=== PATIENT | female | born 1975 | race Caucasian/White ===

== ENCOUNTER → 2017-03-13 | Outpatient (CLI) | payer BC ==
--- NOTE | 2017-03-13 14:28 | MM ---
Reason for exam: screening (asymptomatic). Baseline mammogram. History: Family history of breast cancer in 2 grandmothers. Physical Findings: Dr. Hargrove did not find any significant physical abnormalities on exam. MG 3D Screening Mammo W/Cad Bilateral CC and MLO view(s) were taken. There are scattered fibroglandular densities. There is no discrete abnormality. These results were verbally communicated with the patient and result sheet given to the patient on 03/13/17. ASSESSMENT: Negative, BI-RAD 1 RECOMMENDATION: Routine screening mammogram of both breasts in 1 year.
--- NOTE | 2017-03-14 06:18 | WWHP ---
[facility] - HISTORY AND PHYSICAL DATE OF SERVICE: 03/13/2017 CHIEF COMPLAINT: The patient is here for her routine gynecologic exam and mammogram. HPI: This is a 41-year-old, G2, P2 with an LMP of 02/27/2017. Her is status post vasectomy. The patient is without gynecologic complaints and states her menstrual periods are regular every month. PAST MEDICAL HISTORY: Anxiety. MEDICATIONS: Effexor 150 mg daily. ALLERGIES: No known drug allergies. 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 SOCIAL HISTORY: She denies tobacco and drug use and has 1 to 2 alcohol containing drinks per month. 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 REVIEW OF SYSTEMS: She has lost about 15 pounds over the last year and she states she has been working out. She denies respiratory, cardiac or GI problems. PHYSICAL EXAM: Blood pressure 131/74, height 5 feet 6 inches, weight 135 pounds, BMI 22, temperature 98.3, pulse 82. This is a well-developed, well-nourished, white female, who is alert and oriented x3, in no acute distress. HEENT is within normal limits. NECK: Supple without mass or thyromegaly. CHEST AND LUNGS: Clear to auscultation. HEART: Regular rate and rhythm. Breasts are without mass or discharge. Axillary exam is negative for adenopathy. BACK: Negative for CVA tenderness. ABDOMEN: Soft, nontender, and the lap band port is palpable in the left epigastric region. This is nontender and measures approximately 3 cm. The rest of the abdomen is soft and nontender without palpable masses. PELVIC EXAM: Normal external genitalia. Cervix and vagina appear normal. There is no evidence of prolapse. There is no unusual discharge. The uterus is mid position, nongravid size and nontender. There are no palpable adnexal masses or tenderness. Rectal exam is negative for mass or tenderness and is negative for occult blood. EXTREMITIES: Nontender. IMPRESSION: A 41-year-old gynecologically healthy female whose is status post vasectomy. PLAN: 1. Pap smear was deferred since she had a normal one last year. 2. Self breast examination was discussed. 3. Baseline screening mammogram will be done today. 4. She will return in one year. MMODL / IJN: [id number] /
== END | disposition home or self-care (01) ==
LOC: WWCWWP 13:20
PROVIDERS: ATTEND Obstetrics & Gynecology
DX: Z12.31 Encounter for screening mammogram for malignant neoplasm of breast (principal)
CPT/HCPCS: 77063; G0202

== ENCOUNTER → 2017-11-06 | Outpatient (CLI) | payer BC ==
[2017-11-06 11:36] VITALS: BP 121/64; PULSE 61; TEMP 96.9; BMI 21.7
--- NOTE | 2017-11-06 12:06 | P.PN ---
Progress Note - Text Progress Note Date: 11/06/17 CC: right breast lump felt since one month ago. HPI: this is a 49 year old who has menses regular every month. Her 's status post vasectomy. Patient has noticed the right breast lumps since one month ago. She says it feels about grape or marble size. She states there are occasional pains from this area but is generally not very painful. She denies any nipple leakage or blood. She had an annual exam and baseline mammogram on 03/13/2017 which was benign. Review of systems: weight has been stable. She denies respiratory, cardiac, or G.I. problems. PE: blood pressure 121/64, height 5'6", weight 135 pounds, temperature 96.9, pulse 61. This is a well-developed well-nourished white female who was alert and oriented times 3 in no acute distress. Breast exam: breasts are normal to inspection. There is a palpable mass in the right breast at the 1 o'clock position measuring approximately 3 x 2.5 cm. This is somewhat firm and slightly irregular in texture. This is nontender. Mass is more noticeable in the upright position and less noticeable when supine. There is no nipple discharge. There are no other palpable masses in either breast. Axillary exams are negative for adenopathy. Additional studies: baseline mammogram was negative on 03/13/2017. Impression: 1. Right breast mass which has been noticed by the patient for one month. Differential diagnosis will include breast cysts, other neoplasm, or more prominent suspensory type breast tissue in the upper breast. 2. Family history of breast cancer in her 2 grandmothers. Plan: 1. The area of concern was marked with a bead sticker. Right breast ultrasound will be done today. If suspicious, the patient will be referred to a breast surgeon. If benign appearing and not suspicious, reevaluation at her annual exam in 4 months.
--- NOTE | 2017-11-06 13:06 | USB ---
Reason for exam: clinical finding. History: Family history of breast cancer in 2 grandmothers. Physical Findings: Palpable per Dr. Hargrove. US Breast RT Right complete breast ultrasound includes all four quadrants, the retroareolar region and axilla. Finding demonstrates duct ectasia at the posterior nipple. No suspicious finding. Dense breast tissue at site of palpable. These results were verbally communicated with the patient and result sheet given to the patient on 11/06/17. ASSESSMENT: Negative, BI-RAD 1 RECOMMENDATION: Return to routine screening mammogram schedule for both breasts.
--- NOTE | 2017-11-07 13:15 | P.PN ---
Progress Note - Text Progress Note Date: 11/07/17 OUTPATIENT FOLLOW-UP NOTE TEST(S)/RESULTS: right breast ultrasound done on 11/06/2017 was negative. METHOD OF NOTIFICATION: the patient was notified by phone. PATIENT COMMENTS: the patient understands the results. DIAGNOSIS: breast ultrasound DISCUSSION: we have discussed how the normal breast tissue in the upper breast probably becomes more prominent when she is upright. The fact that the mass seems to disappear when she is supine goes along with this. PLAN: she will return in the fall for her annual exam and we can do a breast exam again at that time. The patient was reassured about these benign findings.
== END | disposition home or self-care (01) ==
LOC: WWCWWP 11:07
PROVIDERS: ATTEND Obstetrics & Gynecology
DX: N63.10 Unspecified lump in the right breast, unspecified quadrant (principal)

== ENCOUNTER → 2018-03-27 | Outpatient (CLI) | payer BC ==
[2018-03-27 11:39] VITALS: BP 111/73; PULSE 70; TEMP 97.7; BMI 20.6
--- NOTE | 2018-03-27 12:29 | P.HPOB ---
History of Present Illness H&P Date: 03/27/18 Chief Complaint: The patient is here for her routine gynecologic exam and mammogram. This is a 42-year-old G2 PII with an LMP of 02/28/2018. The patient's ' s status post vasectomy. Menses are regular every month and she is without gynecologic complaints. She was seen about 5 months ago for a right breast lump. The ultrasound on the right breast was negative at that time. She still notices the lump and it is most notable when she is upright. Review of Systems The patient has lost 7 pounds over the last year. She is status post lap band surgery in 2002. She denies respiratory, cardiac, or G.I. problems. 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 History of Any Multi-Drug Resistant Organisms: MRSA (2011) Past Surgical History: Bariatric Surgery (LapBand surgery 2002), Cholecystectomy , Hernia Repair (Hiatal hernia) Additional Past Surgical History / Comment(s): Surgery for impacted sinus both nostrils. Debridement of MRSA skin lesion 2011. Past Psychological History: No Psychological Hx Reported Smoking Status: Never smoker Past Alcohol Use History: Occasional (One or 2 per month.) Past Drug Use History: None Reported Additional History: She is . 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 - Past Family History Father Family Medical History: No Reported History Additional Family Medical History / Comment(s): Paternal grandmother had breast cancer and diabetes. Grandfather had lung cancer. Mother Additional Family Medical History / Comment(s): Maternal grandmother had breast cancer and diabetes. Medications and Allergies Home Medications Medication Instructions Recorded Confirmed Type Venlafaxine HCl [Effexor XR] mg PO HS 11/06/17 History Venlafaxine HCl [Effexor] tab PO DAILY 11/06/17 History Allergies Allergy/AdvReac Type Severity Reaction Status Date / Time No Known Allergies Allergy Unverified 11/06/17 11:30 Exam Vital Signs Temp Pulse BP 03/27/18 11:20 97.7 F 70 111/73 Intake and Output 03/26/18 03/27/18 03/27/18 22:59 06:59 14:59 Other: Weight 58.06 kg Height 5'6", weight 128 pounds, BMI 20.7. This is a well-developed well-nourished white female who is alert and oriented times 3 in no acute distress. HEENT: Within normal limits. NECK: Supple without mass or thyromegaly. CHEST AND LUNGS: Clear to auscultation. HEART: Regular rate and rhythm. BREASTS: when upright, there is a palpable right breast mass at the 12 o'clock position measuring 2 x 3 cm and a slightly dimpled area inferior to the mass. In the supine position and with the breast tissue elevated in the upright position, the breast mass seems to become less prominent. This is similar to the findings 5 months ago when she presented for the breast mass. There are no other palpable breast masses. The nipples appear normal and there is no nipple discharge or breast tenderness. AXILLARY EXAM: Negative for adenopathy. BACK: Negative for CVA tenderness. ABDOMEN: Soft, nontender, without palpable masses. PELVIC EXAM: Normal external genitalia. Cervix and vagina appear normal. The cervix is slightly friable upon doing the Pap smear. The cervix appears multiparous. There is no cervical motion tenderness. There is no unusual discharge. There is no evidence of prolapse. The uterus is midposition, nongravid size and nontender. There are no palpable adnexal masses or tenderness. RECTAL EXAM: negative for mass or tenderness and is negative for occult blood. EXTREMITIES: Nontender. IMPRESSION: 1. 42-year-old female with right breast mass most noticeable in the upright position. Being that the mass seems to disappear when the breast tissue is elevated or when the patient is in the supine position, it seems to indicate that this possibly may be a summation density of the suspensory tissue which has become more prominent after weight loss. She had a previous right breast ultrasound approximately 5 months ago. 2. Otherwise unremarkable gynecologic exam. PLAN: 1. Pap smear was performed. 2. Self breast awareness was discussed with the patient. 3. Diagnostic bilateral mammograms will be done today. A marker was placed over the area of concern at the 12 o'clock position of the right breast. 4. Osteoporosis prevention was discussed. I have stressed the importance of adequate calcium, vitamin D and regular exercise. Recommended amounts of calcium and vitamin D were also discussed. 5. She will return in one year and PRN.
--- NOTE | 2018-03-27 14:39 | MM ---
Reason for exam: additional evaluation requested from prior study. Last mammogram was performed 1 year ago. History: Family history of breast cancer in 2 grandmothers. Physical Findings: Nurse Summary: 2 x 3cm nodule in the right breast. Dr. Hargrove did breast exam. MG 3D Diag Mammo W/Cad SUGAR Bilateral CC and MLO view(s) were taken. Prior study comparison: March 13, 2017, bilateral MG 3d screening mammo w/cad. BB upper outer quadrant. No mammographic abnormality. No significant new findings when compared with previous films. These results were verbally communicated with the patient and result sheet given to the patient on 03/27/18. ASSESSMENT: Incomplete: need additional imaging evaluation, BI-RAD 0 RECOMMENDATION: Ultrasound of the right breast. (palpable)
--- NOTE | 2018-03-27 14:41 | USB ---
Reason for exam: additional evaluation requested from abnormal screening. History: Family history of breast cancer in 2 grandmothers. US Breast Workup Limited RT Right limited breast ultrasound including focal area of concern, retroareolar and axilla demonstrates no cystic or solid lesion seen. Normal tissue at 1 o'clock palpable. These results were verbally communicated with the patient and result sheet given to the patient on 03/27/18. ASSESSMENT: Negative, BI-RAD 1 RECOMMENDATION: Routine screening mammogram of both breasts in 1 year.
== END ==
LOC: WWCWWP 11:14
PROVIDERS: ATTEND Obstetrics & Gynecology
DX: Z12.31 Encounter for screening mammogram for malignant neoplasm of breast (principal); N63.10 Unspecified lump in the right breast, unspecified quadrant; N63.20 Unspecified lump in the left breast, unspecified quadrant
CPT/HCPCS: 77062; 77066

== ENCOUNTER → 2019-01-06 | Outpatient (CLI) | payer BC ==
--- NOTE | 2019-01-06 13:49 | FL ---
EXAMINATION TYPE: FL barium swallow DATE OF EXAM: 01/06/2019 CLINICAL INDICATION: 43-year-old female with GERD and dysphasia, nausea and vomiting. Patient with hi story of hiatal hernia repair in 2010 and lap band surgery in 2002. COMPARISON: None Total Fluoroscopy Time: 2 minutes 21 seconds. Total images: 35 FINDINGS: Only a total of 2 ounces of thin barium was ingested. The lap band device appears appropriately posit ioned. However, the lap band is very tight with only intermittent trace flow across the lap band. The thoracic esophagus is dilated with fluid and debris and only a portion of the esophageal wall become s coated. Air-fluid level is noted at the midthoracic level. Mild disordered contractions are demonst rated with some intermittent intraesophageal reflux. No hiatal hernia is present. Additional scanning was performed 10 minutes later and shows approximately 1-1.5 ounces making its wa y into the stomach but persistent layering fluid at the midthoracic level. IMPRESSION: 1. Appropriate positioning of the lap band. No evidence for lap band prolapse. 2. Patient ingested only 2 ounces of thin barium. After 10 minutes, only approximately 1-1.5 ounces h as made its way into the stomach. 3. The thoracic esophagus is dilated and filled with fluid and debris with an air-fluid level seen at the midthoracic level. 4. The LAP-BAND is very tight with intermittent trace passage of contrast across the lap band.
== END | disposition home or self-care (01) ==
LOC: RADUSWWP 10:03
PROVIDERS: ATTEND Surgery
DX: K22.8 Other specified diseases of esophagus (principal); Z98.84 Bariatric surgery status
CPT/HCPCS: 74220

== ENCOUNTER → 2019-04-01 | Outpatient (CLI) | payer BC ==
[2019-04-01 15:36] VITALS: BP 118/73; PULSE 60; RESP 18; TEMP 98.6
--- NOTE | 2019-04-01 17:23 | P.HPOB ---
History of Present Illness H&P Date: 04/01/19 Chief Complaint: The patient is here for her routine gynecologic exam and ma mmogram. This is a 43-year-old with an LMP of 03/04/2019.The patient is without gynecologic complaints and states her menses are regular every month. Her is status post vasectomy. The patient has had some problems with prolapse through her lap band and the saline had to be removed. She is now seeing specialists about possibly removing the lap band. She is interested in having a different bariatric surgery to replace the lap band. Review of Systems The patient has gained 31 pounds over the last year. This was after having the saline removed from her lap band as in the HPI. She denies respiratory, cardiac, or G.I. problems. 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 History of Any Multi-Drug Resistant Organisms: MRSA Date of last positivie culture/infection: 2011 MDRO Source:: GROIN Past Surgical History: Bariatric Surgery, Cholecystectomy, Hernia Repair Additional Past Surgical History / Comment(s): lap band surgery 2002. Hiatal hernia repair. Surgery for impacted sinus both nostrils. Debridement of MRSA skin lesion 2011. 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 - Past Family History Father Family Medical History: No Reported History Additional Family Medical History / Comment(s): Paternal grandmother had breast cancer and diabetes. Grandfather had lung cancer. Mother Additional Family Medical History / Comment(s): Maternal grandmother had breast cancer and diabetes. Medications and Allergies Home Medications Medication Instructions Recorded Confirmed Type Venlafaxine HCl [Effexor] 37.5 tab PO HS 11/06/17 04/01/19 History Levocetirizine Dihydrochloride 10 mg PO HS 04/01/19 04/01/19 History [Xyzal] Montelukast [Singulair] 10 mg PO HS 04/01/19 04/01/19 History Allergies Allergy/AdvReac Type Severity Reaction Status Date / Time No Known Allergies Allergy Unverified 04/01/19 15:37 Exam Vital Signs Temp Pulse Resp BP Pulse Ox 04/01/19 15:30 98.6 F 60 18 118/73 98 Intake and Output 04/01/19 04/01/19 04/01/19 06:59 14:59 22:59 Other: Weight 72.121 kg height 5 feet 6 inches, weight 159 pounds, BMI 25.7. This is a well-developed well-nourished White female who is alert and oriented times 3 in no acute distress. HEENT: Within normal limits. NECK: Supple without mass or thyromegaly. CHEST AND LUNGS: Clear to auscultation. HEART: Regular rate and rhythm. BREASTS: Are without mass or discharge. There is mild firmness in the upper right breast with no discrete massand is only noted when she is upright.by elevating the right breast from the bottom, the firmness disappears, thus,this probably represents structural overlap within the breast and not a breast mass. AXILLARY EXAM: Negative for adenopathy. BACK: Negative for CVA tenderness. ABDOMEN: Soft, nontender, without palpable masses. PELVIC EXAM: Normal external genitalia. Cervix is consistent with previous cryo- therapy of the cervix and there are no lesions. Vagina appears normal with no abnormal discharge. There is no evidence of prolapse. The uterus is midposition, nongravid size and nontender. There are no palpable adnexal masses or tenderness. RECTAL EXAM: negative for mass or tenderness and is negative for occult blood. EXTREMITIES: Nontender. IMPRESSION: 1.43-year-old female with normal gynecologic exam whose is status post vasectomy. 2. Issues with her lap band. PLAN: 1. Pap smear was deferred since she had a normal one on 03/27/2018. 2. Self breast awareness was discussed with the patient. 3. screening mammogram will be done today. Her previous mammogram was done last year and was a diagnostic mammogram with a right breast ultrasound which was benign. 4.she will be seeing a specialist for a third opinion regarding the lap band. 5. She was advised to return in one year for her annual well woman exam.
--- NOTE | 2019-04-03 13:53 | MM ---
Reason for exam: screening (asymptomatic). Last mammogram was performed 1 year ago. History: Patient had first child at age 34. Family history of breast cancer in 2 grandmothers. Took hormonal contraceptives for 23 years beginning at age 17. Physical Findings: A clinical breast exam by your physician is recommended on an annual basis and results should be correlated with mammographic findings. MG 3D Screening Mammo W/Cad Bilateral CC and MLO view(s) were taken. Prior study comparison: March 27, 2018, bilateral MG 3d diag mammo w/cad SUGAR. March 13, 2017, bilateral MG 3d screening mammo w/cad. The breast tissue is heterogeneously dense. This may lower the sensitivity of mammography. No significant changes when compared with prior studies. ASSESSMENT: Benign, BI-RAD 2 RECOMMENDATION: Routine screening mammogram of both breasts in 1 year.
== END | disposition home or self-care (01) ==
LOC: WWCWWP 15:22
PROVIDERS: ATTEND Obstetrics & Gynecology
DX: Z12.31 Encounter for screening mammogram for malignant neoplasm of breast (principal)
CPT/HCPCS: 77063; 77067

== ENCOUNTER → 2020-08-17 | Outpatient (CLI) | payer BC ==
[2020-08-17 09:41] VITALS: BP 107/62; PULSE 60; RESP 16; TEMP 98
--- NOTE | 2020-08-17 10:22 | P.HPOB ---
History of Present Illness H&P Date: 08/17/20 Chief Complaint: The patient is here for her routine gynecologic exam and ma mmogram. This is a 44-year-old with an LMP of 08/02/2020. The patient has been experiencing some urinary leakage with coughing, sneezing or running. She is otherwise without complaints. Menstrual periods are regular every month. Her is status post vasectomy. Review of Systems The patient has lost 3 pounds over the last year. She would like to still lose 10-15 pounds more. She denies respiratory, cardiac, or G.I. problems. 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 History of Any Multi-Drug Resistant Organisms: MRSA Date of last positivie culture/infection: 2011 MDRO Source:: GROIN Past Surgical History: Bariatric Surgery, Cholecystectomy, Hernia Repair Additional Past Surgical History / Comment(s): lap band surgery 2002. Gastric bypass surgery with repeat removal of the lap band in 2019. Hiatal hernia repair. Surgery for impacted sinus both nostrils. Debridement of MRSA skin lesion 2011. 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 - Past Family History Father Family Medical History: No Reported History Additional Family Medical History / Comment(s): Paternal grandmother had breast cancer and diabetes. Grandfather had lung cancer. Mother Additional Family Medical History / Comment(s): Maternal grandmother had breast cancer and diabetes. Medications and Allergies Home Medications Medication Instructions Recorded Confirmed Type Venlafaxine HCl [Effexor] 75 tab PO HS 11/06/17 08/17/20 History Levocetirizine Dihydrochloride 10 mg PO HS 04/01/19 08/17/20 History [Xyzal] Montelukast [Singulair] 10 mg PO HS 04/01/19 08/17/20 History Cholecalciferol [Vitamin D3 (25 25 mcg PO DAILY 08/17/20 08/17/20 History Mcg = 1000 Iu)] Iron 18 mg PO HS 08/17/20 08/17/20 History Multivitamin [Multivitamins Adult 1 each PO HS 08/17/20 08/17/20 History Gummies] Allergies Allergy/AdvReac Type Severity Reaction Status Date / Time No Known Allergies Allergy Unverified 08/17/20 09:33 Exam Vital Signs Temp Pulse Resp BP Pulse Ox 08/17/20 09:35 98.0 F 60 16 107/62 96 Intake and Output 08/16/20 08/17/20 08/17/20 22:59 06:59 14:59 Other: Weight 70.76 kg Height 5 feet 6 inches, weight 156 pounds, BMI 25.2. This is a well-developed well-nourished white female who is alert and oriented times 3 in no acute distress. HEENT: Within normal limits. NECK: Supple without mass or thyromegaly. CHEST AND LUNGS: Clear to auscultation. HEART: Regular rate and rhythm. BREASTS: Are without mass or discharge. AXILLARY EXAM: Negative for adenopathy. BACK: Negative for CVA tenderness. ABDOMEN: Soft, nontender, without palpable masses. PELVIC EXAM: Normal external genitalia. Cervix and vagina appear normal. Cervix is multiparous with clear ovulatory type cervical mucus. There is no unusual discharge. There is no evidence of prolapse. There is no evidence of cystocele at rest. There is mild urethral mobility with Valsalva and coughing with no urinary leakage demonstrated. The uterus is midposition, nongravid size and nontender. There are no palpable adnexal masses or tenderness. RECTAL EXAM: negative for mass or tenderness and is negative for occult blood. EXTREMITIES: Nontender. IMPRESSION: 1. 44-year-old perimenopausal female with normal gynecologic exam whose is status post vasectomy. 2. Mild stress urinary incontinence with mild urethral mobility. PLAN: 1. Pap smear cotest was performed. 2. Self breast awareness was discussed with the patient. 3. Screening mammogram will be done today. 4. We have had a long discussion regarding urinary incontinence. I have recommended that she try to empty her bladder as completely as possible by giving herself more time with voiding and by relaxing. I have also recommended ketal exercises along with timed voids. Instructions on these recommendations were discussed with the patient. If after 2-3 months she has not noticed much improvement, we can consider referral to a gynecologic urologist. She is aware of this option and will call if she wants to proceed with this. 5. Osteoporosis prevention was discussed. I have stressed the importance of adequate calcium, vitamin D and regular exercise. Recommended amounts of calcium and vitamin D were also discussed. 6. She was advised to return in one year for her annual well woman exam and as needed.
--- NOTE | 2020-08-17 11:13 | MM ---
Reason for exam: clinical finding. Last mammogram was performed 1 year and 5 months ago. History: Patient had first child at age 34. Family history of breast cancer in 2 grandmothers. Took hormonal contraceptives for 23 years beginning at age 17. Physical Findings: Dr. Hargrove did breast exam. MG 3D Diag Mammo W/Cad SUGAR Bilateral CC and MLO view(s) were taken. ML view(s) were taken of the right breast. XCCL view(s) were taken of the left breast. Prior study comparison: April 01, 2019, bilateral MG 3d screening mammo w/cad. March 27, 2018, bilateral MG 3d diag mammo w/cad SUGAR. The breast tissue is heterogeneously dense. This may lower the sensitivity of mammography. Focal asymmetry, changing, more irregular. This finding is changed when compared with previous exams. These results were verbally communicated with the patient and result sheet given to the patient on 08/17/20. ASSESSMENT: Incomplete: need additional imaging evaluation, BI-RAD 0 RECOMMENDATION: Ultrasound of the right breast.
--- NOTE | 2020-08-17 11:14 | USB ---
Reason for exam: additional evaluation requested from abnormal screening. History: Patient had first child at age 34. Family history of breast cancer in 2 grandmothers. Took hormonal contraceptives for 23 years beginning at age 17. US Breast Limited RT Right limited breast ultrasound including focal area of concern, retroareolar and axilla demonstrates 6.5cm dense breast tissue at 12-1 o'clock BB. These results were verbally communicated with the patient and result sheet given to the patient on 08/17/20. ASSESSMENT: Probably benign, BI-RAD 3 RECOMMENDATION: Follow-up diagnostic mammogram and ultrasound of the right breast in 6 months. Manage patient on a clinical basis.
--- NOTE | 2020-08-31 17:11 | P.PN ---
Progress Note - Text Progress Note Date: 08/31/20 OUTPATIENT FOLLOW-UP NOTE TEST(S)/RESULTS: Test results from 08/17/2020 include negative Pap smear, negative high-risk HPV testing, and probably benign diagnostic mammogram and right breast ultrasound. METHOD OF NOTIFICATION: The patient was notified by phone. PATIENT COMMENTS: DIAGNOSIS: Negative Pap smear cotest and probably benign mammogram and right breast ultrasound. DISCUSSION: The right breast ultrasound report indicates that a 6 month follow- up mammogram and ultrasound are recommended for the right breast. PLAN: The order slip for the 6 month right breast mammogram and ultrasound will be mailed to the patient. She was advised to return in one year for her annual well woman exam.
== END ==
LOC: WWCWWP 09:18
PROVIDERS: ATTEND Obstetrics & Gynecology
DX: Z12.31 Encounter for screening mammogram for malignant neoplasm of breast (principal); R92.8 Other abnormal and inconclusive findings on diagnostic imaging of breast; Z01.419 Encounter for gynecological examination (general) (routine) without abnormal findings; N39.3 Stress incontinence (female) (male); N63.10 Unspecified lump in the right breast, unspecified quadrant
CPT/HCPCS: 77062; 77066

== ENCOUNTER 2020-11-22 02:28 | Emergency (ER) | payer BC ==
[2020-11-22 02:41] VITALS: TEMP 98.5
[2020-11-22] MEDS ORDERED: KETOROLAC 15 MG/ML 1 ML VIAL IVP STA (02:45)
[2020-11-22] MEDS ORDERED: SODIUM CHLORIDE 0.9% 500 ML 500 ML IV STA (02:45)
[2020-11-22] MEDS ORDERED: MORPHINE SULFATE 4 MG/ML SYRINGE IV STA (02:45)
[2020-11-22] MEDS ORDERED: SODIUM CHLORIDE 0.9% 1,000 ML IV STA ×2 (02:45)
--- NOTE | 2020-11-22 02:55 | ED ---
Abdominal Pain HPI - General Chief Complaint: Urogenital Stated Complaint: Kidney Stones Time Seen by Provider: 11/22/20 02:45 Source: patient, family, RN notes reviewed, old records reviewed Mode of arrival: wheelchair Limitations: no limitations - History of Present Illness Initial Comments: This is a 44-year-old female to the ER today. She presents today for evaluation regards to severe flank pain right-sided flank pain and right groin. Positive nausea no active vomiting pain is severe. Patient does have a history of kidney stones and of similar pain in the past. No new traumas. No fevers cough or congestion. No diarrhea or bowel movement issues. No urinary issues no blood in the urine. MD Complaint: flank pain (Right-sided) -: days(s) Location: RLQ, R flank Radiation: R flank Migration to: suprapubic Severity: severe Severity scale (1-10): 9 Quality: stabbing Consistency: constant Improves With: nothing Worsens With: nothing Context: other (none) Associated Symptoms: nausea Treatments Prior to Arrival: NSAIDs, prescription analgesics - Related Data Home Medications Medication Instructions Recorded Confirmed Levocetirizine Dihydrochloride 5 mg PO BID 04/01/19 11/23/20 [Xyzal] Montelukast [Singulair] 10 mg PO HS 04/01/19 11/23/20 Venlafaxine HCl [Effexor XR] 75 mg PO HS 11/23/20 11/23/20 Previous Rx's Medication Instructions Recorded HYDROcodone/APAP 5-325MG [[place] 1 tab PO Q6HR PRN #12 tab 11/22/20 5-325] Allergies Allergy/AdvReac Type Severity Reaction Status Date / Time No Known Allergies Allergy Verified 11/23/20 13:24 Review of Systems ROS Statement: Those systems with pertinent positive or pertinent negative responses have been documented in the HPI. ROS Other: All systems not noted in ROS Statement are negative. 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 History of Any Multi-Drug Resistant Organisms: MRSA Date of last positivie culture/infection: 2011 MDRO Source:: GROIN Past Surgical History: Bariatric Surgery, Cholecystectomy, Hernia Repair Additional Past Surgical History / Comment(s): lap band surgery 2002. Gastric bypass surgery with repeat removal of the lap band in 2019. Hiatal hernia repair. Surgery for impacted sinus both nostrils. Debridement of MRSA skin lesion 2011. Past Psychological History: No Psychological Hx Reported Smoking Status: Never smoker Past Alcohol Use History: Occasional Past Drug Use History: None Reported - Past Family History Father Family Medical History: No Reported History Additional Family Medical History / Comment(s): Paternal grandmother had breast cancer and diabetes. Grandfather had lung cancer. Mother Additional Family Medical History / Comment(s): Maternal grandmother had breast cancer and diabetes. General Exam Limitations: no limitations General appearance: alert, in no apparent distress, anxious Head exam: Present: atraumatic, normocephalic, normal inspection Eye exam: Present: normal appearance, PERRL, EOMI. Absent: scleral icterus, conjunctival injection, periorbital swelling ENT exam: Present: normal exam, mucous membranes moist Neck exam: Present: normal inspection. Absent: tenderness, meningismus, lymphadenopathy Respiratory exam: Present: normal lung sounds bilaterally. Absent: respiratory distress, wheezes, rales, rhonchi, stridor Cardiovascular Exam: Present: regular rate, normal rhythm, normal heart sounds. Absent: systolic murmur, diastolic murmur, rubs, gallop, clicks GI/Abdominal exam: Present: soft, normal bowel sounds. Absent: distended, tenderness, guarding, rebound, rigid Extremities exam: Present: normal inspection, full ROM, normal capillary refill. Absent: tenderness, pedal edema, joint swelling, calf tenderness Back exam: Present: normal inspection Neurological exam: Present: alert, oriented X3, CN II-XII intact Psychiatric exam: Present: normal affect, normal mood Skin exam: Present: warm, dry, intact, normal color. Absent: rash Course Vital Signs 11/22/20 11/22/20 02:38 06:37 Temperature 98.5 F Pulse Rate 56 L 80 Respiratory 19 18 Rate Blood Pressure 129/71 112/76 O2 Sat by Pulse 97 98 Oximetry - Reevaluation(s) Reevaluation #1: 11/22/20 Record is reviewed Patient symptoms are improved here in the ER Patient is informed of results and questions are answered Patient is in no distress Patient is comfortable for discharge home Medical Decision Making - Medical Decision Making 44 female to the emergency department for evaluation presents today for evaluation of severe abdominal pain, positive for kidney stones. Symptoms improved here in the ER she can be discharged home - Lab Data Result diagrams: 11/22/20 02:56 11/22/20 02:56 Lab Results 11/22/20 11/22/20 11/22/20 Range/Units 02:56 02:56 02:56 WBC 5.4 (3.8-10.6) k/uL RBC 4.63 (3.80-5.40) m/uL Hgb 14.0 (11.4-16.0) gm/dL Hct 42.8 (34.0-46.0) % MCV 92.4 (80.0-100.0) fL MCH 30.3 (25.0-35.0) pg MCHC 32.8 (31.0-37.0) g/dL RDW 13.5 (11.5-15.5) % Plt Count 329 (150-450) k/uL MPV 7.5 Neutrophils % 63 % Lymphocytes % 23 % Monocytes % 7 % Eosinophils % 4 % Basophils % 1 % Neutrophils # 3.4 (1.3-7.7) k/uL Lymphocytes # 1.3 (1.0-4.8) k/uL Monocytes # 0.4 (0-1.0) k/uL Eosinophils # 0.2 (0-0.7) k/uL Basophils # 0.0 (0-0.2) k/uL Sodium 135 L (137-145) mmol/L Potassium 4.6 (3.5-5.1) mmol/L Chloride 102 (98-107) mmol/L Carbon Dioxide 21 L (22-30) mmol/L Anion Gap 12 mmol/L BUN 13 (7-17) mg/dL Creatinine 0.61 (0.52-1.04) mg/dL Est GFR (CKD-EPI)AfAm >90 (>60 ml/min/1.73 sqM) Est GFR (CKD-EPI)NonAf >90 (>60 ml/min/1.73 sqM) Glucose 119 H (74-99) mg/dL Calcium 10.6 H (8.4-10.2) mg/dL Total Bilirubin 0.5 (0.2-1.3) mg/dL AST 30 (14-36) U/L ALT 20 (4-34) U/L Alkaline Phosphatase 69 (38-126) U/L Creatine Kinase 56 (30-135) U/L Total Protein 7.3 (6.3-8.2) g/dL Albumin 4.7 (3.5-5.0) g/dL Amylase 87 (30-110) U/L Lipase 75 (23-300) U/L Urine Color Yellow Urine Appearance Clear (Clear) Urine pH 5.5 (5.0-8.0) Ur Specific [place] 1.016 (1.001-1.035) Urine Protein Negative (Negative) Urine Glucose (UA) Negative (Negative) Urine Ketones 2+ H (Negative) Urine Blood Moderate H (Negative) Urine Nitrite Negative (Negative) Urine Bilirubin Negative (Negative) Urine Urobilinogen <2.0 (<2.0) mg/dL Ur Leukocyte Esterase Negative (Negative) Urine RBC 64 H (0-5) /hpf Urine WBC 4 (0-5) /hpf Ur Squamous Epith Cells 2 (0-4) /hpf Urine Mucus Few H (None) /hpf - Radiology Data Radiology results: report reviewed (CT abdomen and pelvis positive for kidney stones), image reviewed Disposition Clinical Impression: Right ureteral stone Disposition: HOME SELF-CARE Condition: Good Instructions (If sedation given, give patient instructions): Kidney Stones (ED) Prescriptions: HYDROcodone/APAP 5-325MG [[place] 5-325] 1 tab PO Q6HR PRN #12 tab PRN Reason: Pain Is patient prescribed a controlled substance at d/c from ED?: No Referrals: Iggy Cotton MD [STAFF PHYSICIAN] - 1-2 days
[2020-11-22] MEDS ORDERED: HYDROmorphone 1 MG/ML 1 ML SYRINGE IVP STA (03:17)
[2020-11-22 03:18] LABS: Basophils % (A) 1 %; Eosinophils # (A) 0.2 k/uL (0-0.7); Eosinophils % (A) 4 %; HCT 42.8 % (34.0-46.0); Lymphocytes # (A) 1.3 k/uL (1.0-4.8); Lymphocytes % (A) 23 %; MCH 30.3 pg (25.0-35.0); MCHC 32.8 g/dL (31.0-37.0); MCV 92.4 fL (80.0-100.0); Mean Platelet Volume 7.5; Monocytes # (A) 0.4 k/uL (0-1.0); Monocytes % (A) 7 %; Neutrophils # (A) 3.4 k/uL (1.3-7.7); Neutrophils % (A) 63 %; Platelet Count 329 k/uL (150-450); RBC 4.63 m/uL (3.80-5.40); RDW 13.5 % (11.5-15.5); WBC 5.4 k/uL (3.8-10.6)
[2020-11-22 03:28] LABS: ALT 20 U/L (4-34); African American GFR (CKD) >90 (>60 ml/min/1.73 sqM); Albumin 4.7 g/dL (3.5-5.0); Amylase 87 U/L (30-110); Anion Gap 12 mmol/L; Blood Urea Nitrogen 13 mg/dL (7-17); Calcium 10.6 mg/dL (8.4-10.2); Carbon Dioxide 21 mmol/L (22-30); Chloride 102 mmol/L (98-107); Creatine Kinase 56 U/L (30-135); Glucose 119 mg/dL (74-99); Lipase 75 U/L (23-300); Non-African American GFR(CKD) >90 (>60 ml/min/1.73 sqM); Sodium 135 mmol/L (137-145); Total Bilirubin 0.5 mg/dL (0.2-1.3); Total Protein 7.3 g/dL (6.3-8.2)
[2020-11-22 03:32] LABS: AST 30 U/L (14-36); Alkaline Phosphatase 69 U/L (38-126); Potassium 4.6 mmol/L (3.5-5.1)
--- NOTE | 2020-11-22 03:36 | CT ---
EXAMINATION TYPE: CT abdomen pelvis wo con DATE OF EXAM: 11/22/2020 COMPARISON: None HISTORY: Rt Flank Pain CT DLP: 385.90 mGycm Automated exposure control for dose reduction was used. Images obtained from the diaphragm to the floor the pelvis with no contrast. Lung bases are clear of infiltrate. There is no pleural effusion. There is hiatal hernia. There is pr evious gastric surgery. Heart size is normal. There is no pericardial effusion. The liver and spleen appear intact. There are clips from cholecystectomy. The bile ducts are not dila rika. There is no evidence of pancreatic mass. Left kidney has normal size and contour. The right kidney is large with hydronephrosis. A small calcu li in the lower pole right kidney. Right ureter is difficult to localize. The left kidney shows no hy dronephrosis. There is some pelvic calcification on the right side that measures 4 mm and could be di stal right ureteral calculus. There is no inguinal hernia. Urinary bladder distends smoothly. Uterus is anteverted. There is no ramon e fluid in the pelvis. There is no mesenteric edema. There is no ascites or free air. There is no evidence of bowel obstruct ion. The lumbar vertebra have normal alignment. The posterior elements are intact. Bony pelvis is intact. The hip joints are intact. Appendix is not seen. IMPRESSION: Right-sided hydronephrosis and hydroureter. There is probably a calculus in the distal right ureter. Small right renal calculi.
[2020-11-22 05:07] LABS: Appearance,Urine Clear (Clear); Bilirubin,Urine Negative (Negative); Blood,Urine Moderate (Negative); Color,Urine Yellow; Glucose,Urine (UA) Negative (Negative); Ketones,Urine 2+ (Negative); Leukocyte Esterase,Urine Negative (Negative); Mucus,Urine Few /hpf; Nitrite,Urine Negative (Negative); PH, Urine 5.5 (5.0-8.0); Protein,Urine Negative (Negative); RBC,Urine 64 /hpf (0-5); Specific Gravity,Urine 1.016 (1.001-1.035); Squamous Epithelial Cell,Urine 2 /hpf (0-4); Urobilinogen,Urine <2.0 mg/dL (<2.0); WBC,Urine 4 /hpf (0-5)
[2020-11-22] MEDS ORDERED: IBUPROFEN 600 MG STARTER PACK 4 TAB BTL PO STA (05:38)
[2020-11-22] MEDS ORDERED: traMADol 50 MG STARTER PACK 3 TAB BTL PO STA (05:38)
[2020-11-22] MEDS ORDERED: ACET/COD 300 MG/30 MG STARTER PACK 6 TAB BTL PO STA (05:38)
[2020-11-22 06:39] VITALS: BP 112/76; PULSE 80; RESP 18
== END 2020-11-22 06:38 | disposition home or self-care (01) ==
LOC: EC 02:28
DX: N20.1 Calculus of ureter (principal); Z90.49 Acquired absence of other specified parts of digestive tract; Z98.84 Bariatric surgery status; Z87.442 Personal history of urinary calculi
CPT/HCPCS: 99284; 96374; 96375 ×2; 96361 ×4; 36415; 80053; 82150; 82550; 83690; 85025; 81001; 74176; J2270; J1170; J1885

== ENCOUNTER 2020-11-23 03:12 | Inpatient (IN) | payer BC ==
[2020-11-23] MEDS ORDERED: ONDANSETRON 4 MG/2 ML VIAL IVP STA (03:24)
[2020-11-23] MEDS ORDERED: NALOXONE 0.4 MG/ML 1 ML VIAL IV PRN (03:24)
[2020-11-23] MEDS ORDERED: HYDROmorphone 1 MG/ML 1 ML SYRINGE IVP STA (03:24)
[2020-11-23] MEDS ORDERED: HYDROmorphone 1 MG/ML 1 ML SYRINGE IVP PRN (03:24)
[2020-11-23] MEDS ORDERED: ONDANSETRON 4 MG/2 ML VIAL IVP PRN (03:24)
[2020-11-23] MEDS ORDERED: SODIUM CHLORIDE 0.9% 1,000 ML IV STA ×2 (03:24)
[2020-11-23] MEDS ORDERED: KETOROLAC 15 MG/ML 1 ML VIAL IVP STA (03:24)
--- NOTE | 2020-11-23 03:31 | ED ---
Recheck HPI - General Chief Complaint: Abdominal Pain Stated Complaint: Kidney Stones Time Seen by Provider: 11/23/20 03:17 Source: patient, RN notes reviewed, old records reviewed Mode of arrival: wheelchair - History of Present Illness Initial Comments: This is a 44-year-old female DF for evaluation of kidney pain. Recurrent kidney pain. Last night for same. He states the pain is Worse today. No new complaints no new injuries or trauma no fevers. No burning or pain with urination MD Complaint: medication refill request -: days(s) Returns Today for: persistent/worsening pain related to initial visit Symptoms Since Prior Visit: worsening pain Associated Symptoms: abdominal pain Treatments Prior to Arrival: Given Pain Meds on - Related Data Home Medications Medication Instructions Recorded Confirmed Venlafaxine HCl [Effexor] 75 tab PO HS 11/06/17 08/17/20 Levocetirizine Dihydrochloride 10 mg PO HS 04/01/19 08/17/20 [Xyzal] Montelukast [Singulair] 10 mg PO HS 04/01/19 08/17/20 Cholecalciferol [Vitamin D3 (25 25 mcg PO DAILY 08/17/20 08/17/20 Mcg = 1000 Iu)] Iron 18 mg PO HS 08/17/20 08/17/20 Multivitamin [Multivitamins Adult 1 each PO HS 08/17/20 08/17/20 Gummies] Previous Rx's Medication Instructions Recorded HYDROcodone/APAP 5-325MG [[place] 1 tab PO Q6HR PRN #12 tab 11/22/20 5-325] Allergies Allergy/AdvReac Type Severity Reaction Status Date / Time No Known Allergies Allergy Verified 11/23/20 03:17 Review of Systems ROS Statement: Those systems with pertinent positive or pertinent negative responses have been documented in the HPI. ROS Other: All systems not noted in ROS Statement are negative. 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 History of Any Multi-Drug Resistant Organisms: MRSA Date of last positivie culture/infection: 2011 MDRO Source:: GROIN Past Surgical History: Bariatric Surgery, Cholecystectomy, Hernia Repair Additional Past Surgical History / Comment(s): lap band surgery 2002. Gastric bypass surgery with repeat removal of the lap band in 2019. Hiatal hernia repair. Surgery for impacted sinus both nostrils. Debridement of MRSA skin lesion 2011. Past Psychological History: No Psychological Hx Reported Smoking Status: Never smoker Past Alcohol Use History: Occasional Past Drug Use History: None Reported - Past Family History Father Family Medical History: No Reported History Additional Family Medical History / Comment(s): Paternal grandmother had breast cancer and diabetes. Grandfather had lung cancer. Mother Additional Family Medical History / Comment(s): Maternal grandmother had breast cancer and diabetes. General Exam General appearance: anxious Head exam: Present: atraumatic, normocephalic, normal inspection Eye exam: Present: normal appearance, PERRL, EOMI. Absent: scleral icterus, conjunctival injection, periorbital swelling ENT exam: Present: normal exam, mucous membranes moist Neck exam: Present: normal inspection. Absent: tenderness, meningismus, lymphadenopathy Respiratory exam: Present: normal lung sounds bilaterally. Absent: respiratory distress, wheezes, rales, rhonchi, stridor Cardiovascular Exam: Present: regular rate, normal rhythm, normal heart sounds. Absent: systolic murmur, diastolic murmur, rubs, gallop, clicks GI/Abdominal exam: Present: soft, normal bowel sounds. Absent: distended, tenderness, guarding, rebound, rigid Extremities exam: Present: normal inspection, full ROM, normal capillary refill. Absent: tenderness, pedal edema, joint swelling, calf tenderness Back exam: Present: normal inspection Neurological exam: Present: alert, oriented X3, CN II-XII intact Psychiatric exam: Present: normal affect, normal mood Skin exam: Present: warm, dry, intact, normal color. Absent: rash Course Vital Signs 11/23/20 03:14 Temperature 97.9 F Pulse Rate 65 Respiratory 18 Rate Blood Pressure 140/79 O2 Sat by Pulse 99 Oximetry - Reevaluation(s) Reevaluation #1: 11/23/20 03:30 Medical record is reviewed Reevaluation #2: 11/23/20 03:30 Pain is currently well controlled Reevaluation #3: 11/23/20 03:30 Patient is currently with pain control and current plan Medical Decision Making - Medical Decision Making 44 female to the ER for recurrent evaluation of kidney stone. Patient will be admitted for further evaluation management of kidney stone pain Disposition Clinical Impression: Right ureteral stone, Abdominal pain Disposition: ADMITTED IP TO THIS [facility] Condition: Good Is patient prescribed a controlled substance at d/c from ED?: No Referrals: Simran Zeng MD [Primary Care Provider] - 1-2 days
[2020-11-23] MEDS: SODIUM CHLORIDE 0.9% 500 ML 500 ML IV STA (03:33)
[2020-11-23 04:00] LABS: Basophils % (A) 1 %; Eosinophils # (A) 0.3 k/uL (0-0.7); Eosinophils % (A) 6 %; HCT 41.7 % (34.0-46.0); HGB 13.8 gm/dL (11.4-16.0); Lymphocytes # (A) 1.4 k/uL (1.0-4.8); Lymphocytes % (A) 27 %; MCH 30.9 pg (25.0-35.0); MCHC 33.1 g/dL (31.0-37.0); MCV 93.5 fL (80.0-100.0); Monocytes # (A) 0.3 k/uL (0-1.0); Monocytes % (A) 7 %; Neutrophils # (A) 2.9 k/uL (1.3-7.7); Neutrophils % (A) 58 %; Platelet Count 303 k/uL (150-450); RBC 4.46 m/uL (3.80-5.40); RDW 13.7 % (11.5-15.5); WBC 5.1 k/uL (3.8-10.6)
[2020-11-23 04:10] LABS: Partial Thromboplastin Time 23.7 sec (22.0-30.0); Prothrombin Time 10.9 sec (9.0-12.0)
[2020-11-23] MEDS: SODIUM CHLORIDE 0.9% 1,000 ML IV SCH ×3 (04:10→16:17)
[2020-11-23 04:14] LABS: ALT 65 U/L (4-34); AST 59 U/L (14-36); African American GFR (CKD) >90 (>60 ml/min/1.73 sqM); Albumin 4.6 g/dL (3.5-5.0); Alkaline Phosphatase 80 U/L (38-126); Amylase 112 U/L (30-110); Anion Gap 10 mmol/L; Blood Urea Nitrogen 12 mg/dL (7-17); Calcium 10.7 mg/dL (8.4-10.2); Carbon Dioxide 23 mmol/L (22-30); Chloride 103 mmol/L (98-107); Glucose 100 mg/dL (74-99); Lipase 145 U/L (23-300); Non-African American GFR(CKD) >90 (>60 ml/min/1.73 sqM); Potassium 4.1 mmol/L (3.5-5.1); Sodium 136 mmol/L (137-145); Total Bilirubin 0.2 mg/dL (0.2-1.3); Total Protein 7.2 g/dL (6.3-8.2)
[2020-11-23 09:32] LABS: Appearance,Urine Clear (Clear); Bilirubin,Urine Negative (Negative); Blood,Urine Negative (Negative); Calcium Oxalate Crystals,Urine Rare /hpf; Color,Urine Yellow; Glucose,Urine (UA) Negative (Negative); Ketones,Urine 1+ (Negative); Leukocyte Esterase,Urine Trace (Negative); Mucus,Urine Occasional /hpf; Nitrite,Urine Negative (Negative); PH, Urine 5.5 (5.0-8.0); Protein,Urine Trace (Negative); RBC,Urine 11 /hpf (0-5); Specific Gravity,Urine 1.026 (1.001-1.035); Squamous Epithelial Cell,Urine 2 /hpf (0-4); Urobilinogen,Urine <2.0 mg/dL (<2.0); WBC,Urine 2 /hpf (0-5)
--- NOTE | 2020-11-23 13:17 | P.GSCN ---
History of Present Illness Consult date: 11/23/20 Reason for Consult: Right renal colic Requesting physician: Lavonne Gray History of present illness: The patient is a 44-year-old white female with no prior history of urolithiasis. On 11/07/2020 she experienced acute onset of left flank pain. CT scan showed a 2 mm left proximal ureteral calculus causing mild left hydronephrosis. Additionally, she was found to have a 3 mm right renal calculus and a 1 mm left renal calculus. She presented back on November 21 with acute onset of right flank pain. Repeat CT scan currently suggests the presence of a 4 mm right distal ureteral calculus. The right kidney is enlarged and may be hydronephrotic. A tiny right lower pole renal calculus was seen. No left-sided calculi were seen, and there was no evidence of left hydronephrosis. She was admitted with intractable pain. 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 History of Any Multi-Drug Resistant Organisms: MRSA Year Discovered:: 2011 MDRO Source:: GROIN Past Surgical History: Bariatric Surgery, Cholecystectomy, Hernia Repair Additional Past Surgical History / Comment(s): lap band surgery 2002. Gastric bypass surgery with repeat removal of the lap band in 2019. Hiatal hernia repair. Surgery for impacted sinus both nostrils. Debridement of MRSA skin lesion 2011. Past Anesthesia/Blood Transfusion Reactions: No Reported Reaction Past Psychological History: No Psychological Hx Reported Smoking Status: Never smoker Past Alcohol Use History: Occasional Past Drug Use History: None Reported - Past Family History Father Family Medical History: No Reported History Additional Family Medical History / Comment(s): Paternal grandmother had breast cancer and diabetes. Grandfather had lung cancer. Mother Additional Family Medical History / Comment(s): Maternal grandmother had breast cancer and diabetes. Medications and Allergies Home Medications Medication Instructions Recorded Confirmed Type Levocetirizine Dihydrochloride 5 mg PO BID 04/01/19 11/23/20 History [Xyzal] Montelukast [Singulair] 10 mg PO HS 04/01/19 11/23/20 History HYDROcodone/APAP 5-325MG [[place] 1 tab PO Q6HR PRN #12 tab 11/22/20 11/23/20 Rx 5-325] Venlafaxine HCl [Effexor XR] 75 mg PO HS 11/23/20 11/23/20 History Allergies Allergy/AdvReac Type Severity Reaction Status Date / Time No Known Allergies Allergy Verified 11/23/20 06:59 Surgical - Exam Vital Signs Temp Pulse Resp BP Pulse Ox 97.9 F 65 18 140/79 99 11/23/20 03:14 11/23/20 03:14 11/23/20 03:14 11/23/20 03:14 11/23/20 03:14 - General well developed, well nourished, no distress - Neck no masses, trachea midline - Respiratory normal respiratory effort - Abdomen Abdomen: soft, tender (Mild right-sided tenderness to palpation), no masses, no guarding, no rigid, no rebound - Psychiatric oriented to time, oriented to person, oriented to place, speech is normal, memory intact Results - Labs 11/23/20 03:46 11/23/20 03:46 Abnormal Lab Results - Last 24 Hours (Table) 11/23/20 11/23/20 Range/Units 03:46 08:54 Sodium 136 L (137-145) mmol/L Glucose 100 H (74-99) mg/dL Calcium 10.7 H (8.4-10.2) mg/dL AST 59 H (14-36) U/L ALT 65 H (4-34) U/L Amylase 112 H (30-110) U/L Urine Protein Trace H (Negative) Urine Ketones 1+ H (Negative) Ur Leukocyte Esterase Trace H (Negative) Urine RBC 11 H (0-5) /hpf Calcium Oxalate Crystal Rare H (None) /hpf Urine Mucus Occasional H (None) /hpf Diabetes panel 11/23/20 Range/Units 03:46 Sodium 136 L (137-145) mmol/L Potassium 4.1 (3.5-5.1) mmol/L Chloride 103 (98-107) mmol/L Carbon Dioxide 23 (22-30) mmol/L BUN 12 (7-17) mg/dL Creatinine 0.73 (0.52-1.04) mg/dL Glucose 100 H (74-99) mg/dL Calcium 10.7 H (8.4-10.2) mg/dL AST 59 H (14-36) U/L ALT 65 H (4-34) U/L Alkaline Phosphatase 80 (38-126) U/L Total Protein 7.2 (6.3-8.2) g/dL Albumin 4.6 (3.5-5.0) g/dL Calcium panel 11/23/20 Range/Units 03:46 Calcium 10.7 H (8.4-10.2) mg/dL Albumin 4.6 (3.5-5.0) g/dL Pituitary panel 11/23/20 Range/Units 03:46 Sodium 136 L (137-145) mmol/L Potassium 4.1 (3.5-5.1) mmol/L Chloride 103 (98-107) mmol/L Carbon Dioxide 23 (22-30) mmol/L BUN 12 (7-17) mg/dL Creatinine 0.73 (0.52-1.04) mg/dL Glucose 100 H (74-99) mg/dL Calcium 10.7 H (8.4-10.2) mg/dL Adrenal panel 11/23/20 Range/Units 03:46 Sodium 136 L (137-145) mmol/L Potassium 4.1 (3.5-5.1) mmol/L Chloride 103 (98-107) mmol/L Carbon Dioxide 23 (22-30) mmol/L BUN 12 (7-17) mg/dL Creatinine 0.73 (0.52-1.04) mg/dL Glucose 100 H (74-99) mg/dL Calcium 10.7 H (8.4-10.2) mg/dL Total Bilirubin 0.2 (0.2-1.3) mg/dL AST 59 H (14-36) U/L ALT 65 H (4-34) U/L Alkaline Phosphatase 80 (38-126) U/L Total Protein 7.2 (6.3-8.2) g/dL Albumin 4.6 (3.5-5.0) g/dL - Imaging CT scan - abdomen: report reviewed, image reviewed Assessment and Plan (1) Right ureteral stone Current Visit: Yes Status: Acute Code(s): N20.1 - CALCULUS OF URETER SNOMED Code(s): 95756910 Plan: It appears that the patient may have passed her small left ureteral calculus and is now experiencing right renal colic due to a 4 mm right distal ureteral calculus. She has bended the emergency room 3 times and desires surgical removal of her calculi. I intend to perform cystoscopy with bilateral retrograde pyelograms. If the left retrograde pyelogram is normal, nothing more will be performed on that side. If the right retrograde pyelogram confirms the presence of a right distal ureteral calculus, ureteroscopy with laser lithotripsy and possible stone basketing will be performed. She is aware of the possible need for a ureteral stent. She is also aware of potential risks, which include anesthesia, infection, and ureteral injury. Time with Patient: Greater than 30
[2020-11-23] MEDS ORDERED: IV FLUID CONTINUATION 1,000 ML IV ONE (13:23)
[2020-11-23] MEDS ORDERED: ONDANSETRON 4 MG/2 ML VIAL ONE (13:35)
[2020-11-23] MEDS ORDERED: fentaNYL (PF) 50 MCG/ML 2 ML AMP IVP ONE ×2 (13:36)
[2020-11-23] MEDS ORDERED: ONDANSETRON 4 MG/2 ML VIAL IVP ONE (13:37)
[2020-11-23] MEDS ORDERED: SCOPOLAMINE 1.5MG/72HR PATCH TRANSDERM ONE (13:37)
[2020-11-23] MEDS ORDERED: DEXAMETHASONE SOD PHOSPHATE 4 MG/ML 1 ML VIAL IVP ONE (13:38)
[2020-11-23] MEDS ORDERED: TAMSULOSIN 0.4 MG CAP.ER.24H PO STA (13:54)
[2020-11-23] MEDS ORDERED: fentaNYL (PF) 50 MCG/ML 2 ML AMP ONE (14:29)
[2020-11-23] MEDS ORDERED: NEOSTIGMINE 1 MG/ML 10 ML VIAL ONE (14:29)
[2020-11-23] MEDS ORDERED: PROPOFOL 10 MG/ML 20 ML VIAL IV ONE (14:29)
[2020-11-23] MEDS ORDERED: ROCURONIUM 10 MG/ML (5 ML VIAL) IV ONE (14:29)
[2020-11-23] MEDS ORDERED: GLYCOPYRROLATE 0.2 MG/ML 2 ML VIAL ONE (14:29)
[2020-11-23] MEDS ORDERED: LIDOCAINE 1% INJ 10MG/ML (20 ML MDV) ONE (14:29)
[2020-11-23] MEDS ORDERED: MIDAZOLAM 2 MG/2 ML VIAL ONE (14:29)
[2020-11-23] MEDS ORDERED: SUCCINYLCHOLINE CHLORIDE 100 MG/5 ML SYR IV ONE (14:29)
[2020-11-23] MEDS ORDERED: IOPAMIDOL-370 50ML BTL MISCELLANE ONE (14:53)
--- NOTE | 2020-11-23 15:38 | FL ---
EXAMINATION TYPE: FL urography retrograde DATE OF EXAM: 11/23/2020 COMPARISON: NONE HISTORY: Fluoroscopy time TECHNIQUE: Fluoroscopy. FINDINGS: Fluoroscopic guidance was provided during procedure of 1 minute and 21 seconds. IMPRESSION: As Above.
--- NOTE | 2020-11-23 15:47 | P.OP ---
Date of Procedure: 11/23/20 Preoperative Diagnosis: Right ureteral calculus Postoperative Diagnosis: Same Procedure(s) Performed: Cystoscopy, bilateral retrograde pyelograms, right ureteroscopy with Holmium laser lithotripsy and stone basketing, right ureteral stent insertion Anesthesia: SAMANTHA Surgeon: Dandre Mcneil Estimated Blood Loss (ml): 0 IV fluids (ml): 400 Pathology: none sent Condition: stable Disposition: PACU Indications for Procedure: The patient is a 44-year-old white female with no prior history of urolithiasis. On 11/07/2020 she experienced acute onset of left flank pain. CT scan showed a 2 mm left proximal ureteral calculus causing mild left hydronephrosis. Additionally, she was found to have a 3 mm right renal calculus and a 1 mm left renal calculus. She presented back on November 21 with acute onset of right flank pain. Repeat CT scan currently suggests the presence of a 4 mm right distal ureteral calculus. The right kidney is enlarged and may be hydronephrotic. A tiny right lower pole renal calculus was seen. No left-sided calculi were seen, and there was no evidence of left hydronephrosis. She was admitted with intractable pain and now comes for ureteroscopic removal of the right distal ureteral calculus. Operative Findings: 4 mm right distal ureteral calculus, fragmented and removed completely. Description of Procedure: The patient was taken to the operating room and placed in the dorsolithotomy position, with legs supported in Sumeet stirrups. The external genitalia was prepped and draped sterilely. The 30 lens was used to introduce the 21-Pashto Murillo cystoscopic sheath through the urethra and into the bladder under direct vision. The bladder was examined in its entirety. Both ureteral orifices were normal anatomic location and configuration, and clear urine effluxed from both. No tumors or foreign bodies were seen. Using an 8-Pashto cone-tipped catheter, bilateral retrograde pyelograms were performed. The left retrograde pyelogram was normal, showing no filling defects or obstruction. The right retrograde pyelogram demonstrated the right distal ureteral calculus. The Murillo semirigid ureteroscope was advanced into the bladder, and the right ureteral orifice was cannulated. The ureteroscope was gently advanced up to the calculus. The 272 micron Holmium laser probe was passed through the ureteroscope, and lithotripsy was performed. After fragmenting the calculus, a 1.9-Pashto nitinol basket was used to retrieve the calculus fragments, which were saved and sent for chemical analysis. The Murillo SpearFysha flexible ureteroscope was advanced into the bladder. The right ureteral orifice could not be cannulated. A 0.035 inch Glidewire was passed through the ureteroscope. The right ureteral orifice was cannulated, and the Glidewire was advanced up to the right renal pelvis. It was then attempted to advance the ureteroscope over the wire, but it could not be passed through the ureteral orifice. The decision was made that the tiny right lower pole renal calculus did not warrant ureteral dilation. Therefore, the ureteroscope was removed. The Glidewire was backloaded into the cystoscope, which was passed into the bladder. A 22 cm, 4.8-Pashto double-J ureteral stent was placed over the wire. Proper stent positioning was verified fluoroscopically and endoscopically. The bladder was emptied and the cystoscope removed. The patient tolerated the procedure well and was taken to the recovery room in stable condition. MUSIC [facility]OCKS Report: Procedure Acuity: Urgent Stone Size and Location: 4 mm, right distal ureter Ureteral Dilation: No Ureteral Access Sheath Used: No Stone Sent for Analysis: Yes All Stones/Fragments Were Removed with a Basket: Yes Complications: No Preoperative Antibiotics Given: Yes Stent Placed: Yes If Stent Placed, Was String Left Attached: No If Stent Placed, When is it to be Removed: 1 week Discharge Medications: None
[2020-11-23 16:43] VITALS: TEMP 97.8
--- NOTE | 2020-11-23 17:04 | P.HPIM ---
History of Present Illness H&P Date: 11/23/20 History of Presenting Illness: Patient is a 44-year-old female with a past medical history of recently diagnosed kidney stones whom presented to the emergency department with a chief complaint of uncontrolled right flank pain. Patient recently seen in the emergency department on 11/22/20 where she underwent a CT abdomen and pelvis without contrast revealing right-sided hydronephrosis and hydroureter with likely calculus and distal right ureter. Urinalysis was positive for blood and ketones and negative for infection. Patient admitted under our services with consultation to urology. Patient seen and fully evaluated at the bedside. She reports uncontrolled pain to right flank wrapping around into right upper quadrant and has been accompanied by nausea at times. Patient denies having any fevers, chills, diaphoresis, chest pain, palpitations, shortness of breath, suprapubic pain or tenderness, dysuria, hematuria, frequency, or urgency. Review of systems: Pertinent positives and negatives as discussed in HPI, a complete review of systems was performed and all other systems are negative. Physical exam: Vital signs reviewed and stable. General: Nontoxic, no distress and appears stated age. Derm: Skin warm and dry, normal coloration for ethnicity. Head: Atraumatic, normocephalic and symmetric. Eyes: EOMs intact, no lid lag, and anicteric sclera Mouth: no lip lesions, mucus membranes moist Cardiovascular: regular rate and rhythm with normal S1S2, no murmur, positive posterior tibial pulses bilaterally, and cap refill < 2 seconds. Lungs: Respirations even, regular, and unlabored on room air. Lungs CTA bilaterally, no rhonchi, no rales, no wheezing, and no accessory muscle usage. GI/: soft, no guarding, no appreciable organomegaly. CVA tenderness Ext: ROM intact. No gross muscle atrophy, no edema, no contractures Neuro: Speech clear, face symmetrical and CN II-XII grossly intact with no noted focal neuro deficits Psych: Alert and oriented to person, place, time, and situation. Appropriate and pleasant affect. Assessment and Plan of Care: Right-ureteral calculus with right-sided hydronephrosis -CT abdomen and pelvis without contrast revealing right-sided hydronephrosis and hydroureter with likely calculus and distal right ureter. -Urinalysis was positive for blood and ketones and negative for infection. -Consult urology for possible cystoscopy -Symptomatic care and pain management. -Flomax 0.4 mg daily Depression -Continue daily home medication regimen with the Effexor. CODE STATUS: Full code DVT prophylaxis: Heparin Discussed with: Patient and RN Anticipated discharge date: Clinical course to determine Anticipated discharge place: Home A total of 40 minutes was spent on the care of this complex patient more than 50% of the time was spent in counseling and care coordination. 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 History of Any Multi-Drug Resistant Organisms: MRSA Date of last positivie culture/infection: 2011 MDRO Source:: GROIN Past Surgical History: Bariatric Surgery, Cholecystectomy, Hernia Repair Additional Past Surgical History / Comment(s): lap band surgery 2002. Gastric bypass surgery with repeat removal of the lap band in 2019. Hiatal hernia re pair. Surgery for impacted sinus both nostrils. Debridement of MRSA skin lesion 2011. Past Anesthesia/Blood Transfusion Reactions: No Reported Reaction Past Psychological History: No Psychological Hx Reported Smoking Status: Never smoker Past Alcohol Use History: Occasional Past Drug Use History: None Reported - Past Family History Father Family Medical History: No Reported History Additional Family Medical History / Comment(s): Paternal grandmother had breast cancer and diabetes. Grandfather had lung cancer. Mother Additional Family Medical History / Comment(s): Maternal grandmother had breast cancer and diabetes. Medications and Allergies Home Medications Medication Instructions Recorded Confirmed Type Levocetirizine Dihydrochloride 5 mg PO BID 04/01/19 11/23/20 History [Xyzal] Montelukast [Singulair] 10 mg PO HS 04/01/19 11/23/20 History HYDROcodone/APAP 5-325MG [[place] 1 tab PO Q6HR PRN #12 tab 11/22/20 11/23/20 Rx 5-325] Venlafaxine HCl [Effexor XR] 75 mg PO HS 11/23/20 11/23/20 History Allergies Allergy/AdvReac Type Severity Reaction Status Date / Time No Known Allergies Allergy Verified 11/23/20 13:24 Physical Exam Vitals: Vital Signs Temp Pulse Pulse Resp BP BP Pulse Ox 11/23/20 04:28 97.8 F 57 L 18 142/86 97 11/23/20 04:09 98.1 F 54 L 14 118/62 96 11/23/20 03:20 58 L 22 148/87 99 11/23/20 03:14 97.9 F 65 18 140/79 99 Intake and Output 11/22/20 11/23/20 11/23/20 22:59 06:59 14:59 Intake Total 260 Balance 260 Intake: Intake, IV Titration 260 Amount Sodium Chloride 0.9% 1, 260 000 ml @ 130 mls/hr IV . Q7H42M [facility] Rx#:[id number] Other: Voiding Method Toilet Weight 67 kg Results CBC & Chem 7: 11/23/20 03:46 11/23/20 03:46 Labs: Abnormal Lab Results - Last 24 Hours (Table) 11/23/20 Range/Units 03:46 Sodium 136 L (137-145) mmol/L Glucose 100 H (74-99) mg/dL Calcium 10.7 H (8.4-10.2) mg/dL AST 59 H (14-36) U/L ALT 65 H (4-34) U/L Amylase 112 H (30-110) U/L Thrombosis Risk Factor Assmnt - Choose All That Apply Any of the Below Risk Factors Present?: No Other Risk Factors: No Thrombosis Risk Factor Assessment Level: Very Low Risk
[2020-11-23 18:18] VITALS: BP 122/70; RESP 14
[2020-11-23 18:25] VITALS: PULSE 75
[2020-11-23] MEDS ORDERED: VENLAFAXINE HCL ER 75 MG CAP PO SCH (21:00)
[2020-11-23] MEDS ORDERED: MONTELUKAST 10 MG TAB PO SCH (21:00)
[2020-11-24] MEDS ORDERED: HEPARIN SODIUM,PORCINE/PF 5,000 UNIT/0.5 ML SYRINGE SQ SCH
[2020-11-24] MEDS ORDERED: TAMSULOSIN 0.4 MG CAP.ER.24H PO SCH (08:30)
--- NOTE | 2020-11-24 13:10 | P.DS ---
Providers Date of admission: 11/23/20 09:22 Expected date of discharge: 11/23/20 Attending physician: Lavonne Gray MD Consults: 11/23/20 03:25 Consult Physician Routine Consulting Provider: Iggy Cotton Consult Reason/Comments: known Do you want consulting provider notified?: Yes Primary care physician: Simran [facility] Course: Patient is a 44-year-old female with a past medical history of recently diagnosed kidney stones whom presented to the emergency department with a chief complaint of uncontrolled right flank pain. Patient recently seen in the emergency department on 11/22/20 where she underwent a CT abdomen and pelvis without contrast revealing right-sided hydronephrosis and hydroureter with likely calculus and distal right ureter. Urinalysis was positive for blood and ketones and negative for infection. Patient admitted under our services with consultation to urology. Patient received IV ceftriaxone for prophylaxis. She underwent a cystoscopy with bilateral retrograde pyelogram and laser lithotripsy and right ureteral stent placement. Patient did well postoperatively. She was cleared by urology for discharge. She will follow-up in the office as directed. Patient Condition at Discharge: Fair Plan - Discharge Summary Discharge Rx Participant: Yes New Discharge Prescriptions: No Action Montelukast [Singulair] 10 mg PO HS Levocetirizine Dihydrochloride [Xyzal] 5 mg PO BID Venlafaxine HCl [Effexor XR] 75 mg PO HS HYDROcodone/APAP 5-325MG [[place] 5-325] 1 tab PO Q6HR PRN #12 tab PRN Reason: Pain Discharge Medication List Levocetirizine Dihydrochloride [Xyzal] 5 mg PO BID 04/01/19 [History] Montelukast [Singulair] 10 mg PO HS 04/01/19 [History] HYDROcodone/APAP 5-325MG [[place] 5-325] 1 tab PO Q6HR PRN #12 tab 11/22/20 [Rx] Venlafaxine HCl [Effexor XR] 75 mg PO HS 11/23/20 [History] Follow up Appointment(s)/Referral(s): Iggy Cotton MD [STAFF PHYSICIAN] - 1 Week Simran Zeng MD [Primary Care Provider] - 1-2 days Patient Instructions/Handouts: *Surgery [facility] - Scopalamine Patch Instructions, Lithotripsy (DC) Activity/Diet/Wound Care/Special Instructions: Diet as tolerated. Activity as tolerated. Follow-up in [address] Cotton for office cystoscopy with stent removal. Discharge Disposition: HOME SELF-CARE
== END 2020-11-23 19:16 | disposition home or self-care (01) | DRG 661 ==
LOC: EC 03:12 → 6PED 03:25 → OBSVTOIN 09:22 → 6PED 15:55
PROVIDERS: ADMIT Internal Medicine; ATTEND Internal Medicine
PROC: 0T768DZ Dilation of Right Ureter with Intraluminal Device, Via Natural or Artificial Opening Endoscopic (ICD-10-PCS; principal; 2020-11-23 10:00)
PROC: 0TC08ZZ Extirpation of Matter from Right Kidney, Via Natural or Artificial Opening Endoscopic (ICD-10-PCS; 2020-11-23 10:00)
PROC: BT141ZZ Fluoroscopy of Kidneys, Ureters and Bladder using Low Osmolar Contrast (ICD-10-PCS; 2020-11-23 10:00)
DX: N13.2 Hydronephrosis with renal and ureteral calculous obstruction (principal); Z87.442 Personal history of urinary calculi; Z98.84 Bariatric surgery status; Z90.49 Acquired absence of other specified parts of digestive tract; Z86.14 Personal history of Methicillin resistant Staphylococcus aureus infection; Z83.3 Family history of diabetes mellitus; Z80.3 Family history of malignant neoplasm of breast; Z80.1 Family history of malignant neoplasm of trachea, bronchus and lung; Z79.899 Other long term (current) drug therapy
CPT/HCPCS: 74420; 80053; 81001; 81025; 82150; 82365; 83690; 85025; 85610; 85730; 99284

== ENCOUNTER → 2021-05-13 | Outpatient (CLI) | payer BC ==
--- NOTE | 2021-05-16 07:53 | MM ---
Reason for exam: follow-up at short interval from prior study. Last mammogram was performed 9 months ago. History: Patient had first child at age 34. Family history of breast cancer in 2 grandmothers. Took hormonal contraceptives for 23 years beginning at age 17. Physical Findings: Nurse did not find any significant physical abnormalities on exam. MG 3D Diag Mammo W/Cad RT CC and MLO view(s) were taken of the right breast. Prior study comparison: August 17, 2020, bilateral MG 3d diag mammo w/cad [facility]. April 01, 2019, bilateral MG 3d screening mammo w/cad. The breast tissue is heterogeneously dense. This may lower the sensitivity of mammography. There is no discrete abnormality including area of concern marked right 12 o'clock. These results were verbally communicated with the patient and result sheet given to the patient on 05/13/21. ASSESSMENT: Incomplete: need additional imaging evaluation, BI-RAD 0 RECOMMENDATION: Ultrasound of the right breast.
--- NOTE | 2021-05-16 07:54 | USB ---
Reason for exam: additional evaluation requested from abnormal screening. History: Patient had first child at age 34. Family history of breast cancer in 2 grandmothers. Took hormonal contraceptives for 23 years beginning at age 17. US Breast Limited RT Right limited breast ultrasound including focal area of concern, retroareolar and axilla demonstrates no cystic or solid lesion seen. These results were verbally communicated with the patient and result sheet given to the patient on 05/13/21. ASSESSMENT: Probably benign, BI-RAD 3 RECOMMENDATION: Follow-up diagnostic mammogram of both breasts in 6 months. Consider breast MRI. Manage patient on a clinical basis.
== END | disposition home or self-care (01) ==
LOC: RADMAMWWP 13:34
PROVIDERS: ATTEND Obstetrics & Gynecology
DX: R92.2 Inconclusive mammogram (principal); Z80.3 Family history of malignant neoplasm of breast
CPT/HCPCS: 77061; 77065

== ENCOUNTER → 2021-09-29 | Outpatient (CLI) | payer BC ==
--- NOTE | 2021-09-30 11:01 | CT ---
EXAMINATION TYPE: CT abdomen pelvis wo con DATE OF EXAM: 09/29/2021 HISTORY: bilateral flank pian and hematuria CT DLP: 576 mGycm. Automated Exposure Control for Dose Reduction was Utilized. TECHNIQUE: CT scan of the abdomen and pelvis is performed without oral or IV contrast. COMPARISON: CT abdomen and pelvis November 22, 2020 FINDINGS: Within the limitations of a non-contrast study, the following observations are made. LUNG BASES: No significant abnormality is appreciated. LIVER/GB: Cholecystectomy clips are redemonstrated. PANCREAS: No significant abnormality is seen. SPLEEN: No significant abnormality is seen. ADRENALS: No significant abnormality is seen. KIDNEYS: No renal calculi identified bilaterally on current study. Fullness of the bilateral renal pe lvises redemonstrated with possible mild right-sided calyceal dilatation. Findings less prominent flex edgardo prior study. No intraluminal calculus in the bladder. BOWEL: Suboptimal evaluation as patient has little intra-abdominal fat along with lack of enteric con trast. Surgical changes from gastric bypass procedure in the epigastric region are redemonstrated. Th ere are additional sutures in the right upper pelvis on current study near focally fluid filled dilat ed bowel loops with some small foci of air. GENITAL ORGANS: Anteverted uterus. There is 4.2 cm low dense lesion left adnexa or pelvis echo image 107. Scattered small pelvic phleboliths bilaterally. Surgical clip right pelvis noted axial image 121 this has changed location from left pelvis on prior study. LYMPH NODES: No greater than 1cm abdominal or pelvic lymph nodes are appreciated. OSSEOUS STRUCTURES: Mild disc space narrowing L4-L5 and L5-S1 levels. OTHER: No significant additional abnormality is seen. IMPRESSION: 1. No renal stones identified currently. Extrarenal pelvis bilaterally present. Possible mild right g reater than left hydronephrosis improved from prior. Source of hematuria not identified. Symptoms per sist further investigation with CT urogram may be warranted. 2. Suboptimal evaluation of bowel. Overall nonobstructive bowel gas pattern. Single dilated fluid-deidre led bowel loop at site of sutures in the right upper pelvis noted on current study. This is nonspecif ic.
== END | disposition home or self-care (01) ==
LOC: RADCTMAIN 17:26
PROVIDERS: ATTEND Urology
DX: R31.9 Hematuria, unspecified (principal)
CPT/HCPCS: 74176

== ENCOUNTER → 2021-11-07 | Outpatient (CLI) | payer BC ==
--- NOTE | 2021-11-07 15:19 | US ---
EXAMINATION TYPE: US pelvic complete DATE OF EXAM: 11/07/2021 COMPARISON: CT 09/29/21 CLINICAL HISTORY: N83.[address] showed a cystic area on left ovary TECHNIQUE: . Transabdominal sonographic images of the pelvis were acquired. Date of LMP: 11/02/21 EXAM MEASUREMENTS: Uterus: 9.9 x 5.7 x 5.4 cm Endometrial Stripe: 0.27 cm Right Ovary: 3.1 x 2.3 x 1.5 cm Left Ovary: 2.6 x 2.6 x 2.1 cm 1. Uterus: Anteverted heterogeneous 2. Endometrium: wnl 3. Right Ovary: wnl 4. Left Ovary: wnl. The left ovarian cyst evident on the ultrasound images. Scattered peripheral sma ll follicles are present. 5. Bilateral Adnexa: Excessive amount of peristalsing bowel visualized 6. Posterior cul-de-sac: WNL Urinary bladder appears sonolucent. IMPRESSION: 1. Heterogenous appearing uterus. Correlate for fibroids. 2. Previous left ovarian cyst is not identified. Follicles are present.
== END | disposition home or self-care (01) ==
LOC: RADUSWWP 14:22
PROVIDERS: ATTEND Obstetrics & Gynecology
DX: N83.02 Follicular cyst of left ovary (principal)
CPT/HCPCS: 76856

== ENCOUNTER → 2022-11-02 | Outpatient (CLI) | payer BC ==
--- NOTE | 2022-11-02 11:53 | XR ---
EXAMINATION TYPE: XR KUB DATE OF EXAM: 11/02/2022 HISTORY: N200 CALCULUS - KIDNEY Comparison: None.Single KUB is submitted for interpretation. Findings: Right renal calculi: None Visualized. Right ureteral calculi: None Visualized. Left renal calculi: None Visualized. Left ureteral calculi: None Visualized. Pelvic calcifications: None Visualized. Bowel gas pattern is unremarkable. No free air. No mass effects. IMPRESSION: 1. No visible calcifications seen. Overlying bowel content limits evaluation.
== END | disposition home or self-care (01) ==
LOC: RADXRMAIN 11:24
PROVIDERS: ATTEND Urology
DX: N20.0 Calculus of kidney (principal)
CPT/HCPCS: 74018

== ENCOUNTER → 2022-12-12 | Outpatient (CLI) | payer BC ==
[2022-12-12 14:47] VITALS: BP 124/76; PULSE 61; RESP 16; TEMP 97.9
--- NOTE | 2022-12-12 15:40 | P.HPOB ---
History of Present Illness H&P Date: 12/12/22 Chief Complaint: The patient is here for her routine gynecologic exam and ma mmogram. This is a 46-year-old with an LMP of 12/01/2022. The patient's is status post vasectomy. Menstrual periods are regular every month. She states they're typically lasting 6 days with 2 days of very heavy flow. On the heavy days she typically has to change her pad and tampon up to every 1 hour. She does have some cramping associated. And does take Tylenol or ibuprofen for this. She is otherwise without gynecologic complaints. She had a bladder sling procedure in April 2022. She states her stress urinary incontinence is much improved. Review of Systems The patient has gained 11 pounds over the last year. She denies respiratory, cardiac, or G.I. problems. 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 History of Any Multi-Drug Resistant Organisms: MRSA Date of last positivie culture/infection: 2011 MDRO Source:: GROIN Past Surgical History: Bariatric Surgery, Cholecystectomy, Hernia Repair Additional Past Surgical History / Comment(s): lap band surgery 2002. Gastric bypass surgery with repeat removal of the lap band in 2019. Hiatal hernia repair. Surgery for impacted sinus both nostrils. Debridement of MRSA skin lesion 2011. Bladder sling procedure 2022. 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 - Past Family History Father Family Medical History: No Reported History Additional Family Medical History / Comment(s): Paternal grandmother had breast cancer and diabetes. Grandfather had lung cancer. Mother Family Medical History: Thyroid Disorder Additional Family Medical History / Comment(s): Maternal grandmother had breast cancer and diabetes. Hyperthyroid. Medications and Allergies Home Medications Medication Instructions Recorded Confirmed Type Levocetirizine Dihydrochloride 5 mg PO BID 04/01/19 12/12/22 History [Xyzal] Venlafaxine HCl [Effexor XR] 75 mg PO HS 11/23/20 12/12/22 History Ascorbic Acid [Vitamin C] 500 mg PO DAILY 12/12/22 12/12/22 History Ferrous Sulfate, Dried [Iron] 120 mg PO DAILY 12/12/22 12/12/22 History Allergies Allergy/AdvReac Type Severity Reaction Status Date / Time No Known Allergies Allergy Verified 12/12/22 14:39 Exam Vital Signs Temp Pulse Resp BP Pulse Ox 12/12/22 14:40 97.9 F 61 16 124/76 100 Intake and Output 12/12/22 12/12/22 12/12/22 06:59 14:59 22:59 Other: Weight 68.039 kg Height 5 feet 6 inches, weight 150 pounds, BMI 24.2. This is a well-developed well-nourished white female who is alert and oriented times 3 in no acute distress. HEENT: Within normal limits. NECK: Supple without mass or thyromegaly. CHEST AND LUNGS: Clear to auscultation. HEART: Regular rate and rhythm. BREASTS: Are without mass or discharge. AXILLARY EXAM: Negative for adenopathy. BACK: Negative for CVA tenderness. ABDOMEN: Soft, nontender, without palpable masses. PELVIC EXAM: Normal external genitalia. Cervix and vagina appear normal. There is no unusual discharge. There is no evidence of prolapse. The uterus is midposition, multiparous nongravid size and nontender. There are no palpable adnexal masses or tenderness. RECTAL EXAM: negative for mass or tenderness and is negative for occult blood. EXTREMITIES: Nontender. IMPRESSION: 1. 46-year-old female whose is status post vasectomy with normal gynecologic exam. 2. Hypermenorrhea with 2 days of very heavy menstrual flow per cycle. PLAN: 1. Pap smear was deferred since she had a negative Pap smear cotest on 08/17/2020. 2. Self breast awareness was discussed with the patient. We have also discussed symptoms associated with inflammatory breast cancer. 3. Screening mammogram was done today. 4. Trial of meclofenamate sodium 100 mg by mouth 3 times a day as needed for heavy menstrual flow up to 6 days per cycle. She will not use ibuprofen or other NSAID medications while she is taking this. We have discussed possible side effects including stomach upset. The electronic prescription will be sent to [facility] pharmacy in [facility]. 5. She was instructed to call if her menstrual periods are not improving and we can discuss other options such as endometrial ablation. 6. She was advised to return in one year for her annual well woman exam and as needed.
--- NOTE | 2022-12-13 10:09 | MM ---
Reason for Exam: Screening (asymptomatic). Last screening mammogram was performed 12 month(s) ago. Patient History: Menarche at age 13. First Full-Term at age 34. Late child-bearing (after 30). Hormonal Contraceptives, starting at age 17 for 23 years. Maternal grandmother had breast cancer. Maternal grandmother had breast cancer. Risk Values: Marie 5 year model risk: 1.1%. NCI Lifetime model risk: 13.0%. Prior Study Comparison: 08/17/2020 Bilateral Diagnostic Mammogram, [facility]. 05/13/2021 Right Diagnostic Mammogram, [facility]. 12/06/2021 Bilateral MG 3D diag mammo w/cad [facility], [facility]. Tissue Density: The breast tissue is extremely dense which could obscure a lesion on mammography. Findings: Analyzed By CAD. There is no suspicious group of microcalcifications or new suspicious mass in either breast. Overall Assessment: Negative, BI-RAD 1 Management: Screening Mammogram of both breasts in 1 year. A clinical breast exam by your physician is recommended on an annual basis and results should be correlated with mammographic findings. Note on Marie scores and lifetime risk: 1. A Marie score greater than 3% is considered moderate risk. If this is the case, consider specialist referral to assess eligibility for a risk reducing agent. If overall lifetime risk for the development of breast cancer is 20% or higher, the patient may qualify for future screening with alternating mammogram and breast MRI. Electronically signed and approved by: Darwin Lobo D.O.
== END ==
LOC: WWCWWP 14:33
PROVIDERS: ATTEND Obstetrics & Gynecology
DX: Z01.419 Encounter for gynecological examination (general) (routine) without abnormal findings (principal); N39.3 Stress incontinence (female) (male); N92.0 Excessive and frequent menstruation with regular cycle; Z12.31 Encounter for screening mammogram for malignant neoplasm of breast; Z80.3 Family history of malignant neoplasm of breast
CPT/HCPCS: 77063; 77067

== ENCOUNTER → 2023-07-19 | Outpatient (CLI) | payer BC ==
--- NOTE | 2023-07-19 10:40 | CT ---
EXAMINATION TYPE: CT abdomen pelvis wo con DATE OF EXAM: 07/19/2023 COMPARISON: 09/29/2021 INDICATION: back pain DLP: 325.3 mGycm, Automated exposure control for dose reduction was used. CONTRAST: 0 mL of Isovue 300. Study performed without Oral Contrast TECHNIQUE: Axial images were obtained from above the diaphragm to the pubic rami in the axial plane a t 5 mm thick sections. Reconstructed images are reviewed on the computer in the coronal plane. FINDINGS: Limited CT sections are obtained the lung bases. There is a large air-filled hiatal hernia. Postsurg ical changes are within the stomach.. CT ABDOMEN: Liver: Normal Spleen: Normal Pancreas: Normal Adrenal glands: The adrenal glands are normal. Gallbladder: Surgically absent Kidneys: No masses are evident. No hydronephrosis is present. No cysts are present. There is a non obstructing 0.3 cm stone in the upper pole left kidney. Aorta: Normal Inferior vena cava: Normal. CT PELVIS: Loops of bowel within the abdomen and pelvis are normal. Postsurgical bowel changes are within the mid abdomen. There are loops of bowel which are incompletely distended or lack oral contrast limitin g their evaluation. Appendix: Not identified. No dilated tubular structure or inflammatory changes are identified. Urinary bladder: Normal. Genitourinary structures: Uterus is unremarkable. Adnexa appear unremarkable. Previous left adnexal c yst is not identified currently Osseous structures: No suspicious lytic or sclerotic lesions. IMPRESSION: 1. Postsurgical changes. No suspicious acute changes identified. 2. Moderate-sized hiatal hernia.
== END | disposition home or self-care (01) ==
LOC: RADCTMAIN 10:06
PROVIDERS: ATTEND Family Medicine
DX: K44.9 Diaphragmatic hernia without obstruction or gangrene (principal); M54.50 Low back pain, unspecified; Z90.49 Acquired absence of other specified parts of digestive tract; Z98.890 Other specified postprocedural states
CPT/HCPCS: 74176

== ENCOUNTER → 2024-01-08 | Outpatient (CLI) | payer BC ==
[2024-01-08 15:28] VITALS: BP 99/61; PULSE 76; RESP 17; TEMP 97.9
--- NOTE | 2024-01-08 16:33 | P.HPOB ---
History of Present Illness H&P Date: 01/08/24 Chief Complaint: The patient is here for her routine gynecologic exam and ma mmogram. This is a 48-year-old G2, P2 with an LMP of 12/24/2023. The patient's is status post vasectomy. She continues to have menstrual periods that are regular every month that are now lasting 7 to 10 days with 4 days of very heavy flow. She has noticed variable improvement with meclofenamate sodium. Heavy days are problematic and that she has to use tampons and pads and often can bleed through them in 1 to 2 hours. Review of Systems The patient's weight has been stable over the last year. She denies respiratory, cardiac, or G.I. problems. 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 History of Any Multi-Drug Resistant Organisms: MRSA Date of last positivie culture/infection: 2011 MDRO Source:: GROIN Past Surgical History: Bariatric Surgery, Cholecystectomy, Hernia Repair Additional Past Surgical History / Comment(s): lap band surgery 2002. Gastric bypass surgery with repeat removal of the lap band in 2019. Hiatal hernia repair. Surgery for impacted sinus both nostrils. Debridement of MRSA skin lesion 2011. Bladder sling procedure 2022. 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. - Past Family History Father Family Medical History: No Reported History Additional Family Medical History / Comment(s): Paternal grandmother had breast cancer and diabetes. Grandfather had lung cancer. Mother Family Medical History: Thyroid Disorder Additional Family Medical History / Comment(s): Maternal grandmother had breast cancer and diabetes. Hyperthyroid. Medications and Allergies Home Medications Medication Instructions Recorded Confirmed Type Levocetirizine Dihydrochloride 5 mg PO BID 04/01/19 01/08/24 History [Xyzal] Venlafaxine HCl [Effexor XR] 75 mg PO HS 11/23/20 01/08/24 History Ascorbic Acid [Vitamin C] 500 mg PO DAILY 12/12/22 01/08/24 History Ferrous Sulfate, Dried [Iron] 120 mg PO DAILY 12/12/22 01/08/24 History Meclofenamate Sodium 100 mg PO TID PRN #25 capsule 12/12/22 01/08/24 Rx Allergies Allergy/AdvReac Type Severity Reaction Status Date / Time No Known Allergies Allergy Verified 01/08/24 15:26 Exam Vital Signs Temp Pulse Resp BP Pulse Ox 01/08/24 15:26 97.9 F 76 17 99/61 99 Intake and Output 01/08/24 01/08/24 01/08/24 06:59 14:59 22:59 Other: Weight 68.946 kg Height 5 feet 6 inches, weight 152 pounds, BMI 24.5. This is a well-developed well-nourished white female who is alert and oriented times 3 in no acute distress. HEENT: Within normal limits. NECK: Supple without mass or thyromegaly. CHEST AND LUNGS: Clear to auscultation. HEART: Regular rate and rhythm. BREASTS: Are without mass or discharge. AXILLARY EXAM: Negative for adenopathy. BACK: Negative for CVA tenderness. ABDOMEN: Soft, nontender, without palpable masses. PELVIC EXAM: Normal external genitalia. Cervix and vagina appear normal. There is no unusual discharge. There is no evidence of prolapse. The uterus is midposition, nongravid size and nontender. There are no palpable adnexal masses or tenderness. RECTAL EXAM: negative for mass or tenderness and is negative for occult blood. EXTREMITIES: Nontender. Additional studies: CT scan of the abdomen and pelvis done on 07/19/2023 indicates the uterus is unremarkable and the adnexa appear unremarkable. IMPRESSION: 1. 48-year-old female whose is status post vasectomy, with normal gynecologic exam. 2. Worsening hypermenorrhea not significantly improved with meclofenamate sodium. PLAN: 1. Pap smear was deferred since she had a negative Pap smear cotest on 08/17/2020 2. Self breast awareness was discussed with the patient. We have also discussed symptoms associated with inflammatory breast cancer. 3. Screening mammogram was done today. 4. We have had a long discussion regarding various options for her hypermenorrhea. We have discussed hormonal options, hysterectomy, and endometrial ablation. The patient is interested in proceeding with an endometrial ablation. All of her questions were answered. The [employer] FAQ handout on endometrial ablation was given to the patient. The patient will be referred to Dr. Koehler for possible endometrial ablation. She understands that not all women are candidates for this procedure. She also understands that a small percentage will continue to have heavy menstrual periods or redevelop heavy menstrual periods over time. 5. She was advised to return in one year for her annual well woman exam.
== END ==
LOC: WWCWWP 15:10
PROVIDERS: ATTEND Obstetrics & Gynecology
DX: Z12.31 Encounter for screening mammogram for malignant neoplasm of breast (principal); N92.0 Excessive and frequent menstruation with regular cycle; Z80.3 Family history of malignant neoplasm of breast